=== PATIENT | male | born 1965 | race Caucasian/White ===

== ENCOUNTER 2017-12-22 14:46 | Inpatient (IN) | payer OTHER ==
[~2017-12-22] VITALS: Ht 170.2 cm; Wt 118.0 kg
[2017-12-22 14:50] VITALS: Ht 170.2 cm; Wt 118.0 kg
[2017-12-22] MEDS ORDERED: LOPRESSOR50 M1 PO (15:10)
[2017-12-22] MEDS ORDERED: ATORVASTATIN CA40 M1 PO (15:10)
[2017-12-22] MEDS ORDERED: PLA75 PO (15:10)
[2017-12-22] MEDS ORDERED: XOPENEX HF0.045 MG/1 INH (15:10)
[2017-12-22] MEDS ORDERED: ASPIR 8181 MG PO (15:10)
[2017-12-22] MEDS ORDERED: CLARITIN10 MG PO (15:11)
[2017-12-22] MEDS ORDERED: AMLODIPINE BESY10 M2 PO (15:11)
[2017-12-22] MEDS ORDERED: ISOSORBIDE MONO30 MG PO (15:11)
[2017-12-22] MEDS ORDERED: ZESTRIL20 MG PO (15:11)
[2017-12-22] MEDS ORDERED: DYA PO (15:12)
[2017-12-22] MEDS ORDERED: TAMSULOSIN HYD0.4 M1 PO (15:12)
[2017-12-22 15:43] LABS: BASOPHIL % 0.3 % (0-2); PLATELET COUNT 230 x10^3mcL (130-400); RED CELL DISTRIBUTION WIDTH 13.1 % (11.5-14.5)
[2017-12-22 15:50] LABS: CALCIUM 8.9 mg/dL (8.5-10.1); CHLORIDE SERUM 103 mmol/L (98-107); CREATININE SERUM 0.9 mg/dL (0.7-1.3); GFR1 > 60 mL/min; GLUCOSE SERUM 109 mg/dL (74-106); POTASSIUM SERUM 3.5 mmol/L (3.5-5.1); SODIUM SERUM 140 mmol/L (136-145)
[2017-12-22 15:54] LABS: ALKALINE PHOSPHATASE 84 U/L (46-116); ALT/SGPT 54 U/L (16-63); AST/SGOT 28 U/L (15-37); BILIRUBIN TOTAL 0.3 mg/dL (0.20-1.00); LIPASE 252 IU/L (73-393); TOTAL PROTEIN, SERUM 8.2 g/dL (6.4-8.2)
[2017-12-22 16:04] LABS: microscopic required? NO
[2017-12-22 16:34] LABS: AMPHETAMINE QUAL UR NONE DETECTED (See below)
[2017-12-22 16:42] LABS: urine erythrocyte NEGATIVE (NEGATIVE)
[2017-12-22 17:06] VITALS: BP 158/86
[2017-12-22 17:50] LABS: MAGNESIUM 1.9 mg/dL (1.8-2.4)
[2017-12-22 17:54] LABS: CHOLESTEROL/HDL RATIO 2.2
[2017-12-22 17:58] VITALS: BP 158/86
[2017-12-22 20:57] VITALS: BP 102/52
[2017-12-22 21:30] VITALS: BP 130/100
[2017-12-23 05:36] VITALS: BP 122/72
[2017-12-23 06:17] LABS: CALCIUM 8.5 mg/dL (8.5-10.1); CARBON DIOXIDE 25.4 mmol/L (21-32); CHLORIDE SERUM 106 mmol/L (98-107); GFR1 > 60 mL/min; GLUCOSE SERUM 81 mg/dL (74-106); POTASSIUM SERUM 3.7 mmol/L (3.5-5.1); SODIUM SERUM 138 mmol/L (136-145)
[2017-12-23 06:56] LABS: BASOPHIL % 0.4 % (0-2); PLATELET COUNT 215 x10^3mcL (130-400); RED CELL DISTRIBUTION WIDTH 13.5 % (11.5-14.5)
[2017-12-23 08:52] VITALS: BP 140/80
[2017-12-23 13:45] VITALS: BP 128/71
[2017-12-23 16:54] VITALS: BP 128/71
[2017-12-23 17:05] VITALS: BP 132/73
[2017-12-23 20:00] VITALS: BP 140/62
== END 2017-12-23 22:23 | disposition other institution (70) | DRG 282 ==
LOC: ED 14:46 → DU 16:22
PROVIDERS: Emergency Medicine; Internal Medicine
DX: I21.4 Non-ST elevation (NSTEMI) myocardial infarction (principal); J45.909 Unspecified asthma, uncomplicated; I50.9 Heart failure, unspecified; E78.5 Hyperlipidemia, unspecified; I11.0 Hypertensive heart disease with heart failure; I25.119 Atherosclerotic heart disease of native coronary artery with unspecified angina pectoris; M17.10 Unilateral primary osteoarthritis, unspecified knee; Z88.0 Allergy status to penicillin; Z88.5 Allergy status to narcotic agent; Z88.8 Allergy status to other drugs, medicaments and biological substances; I25.2 Old myocardial infarction; Z95.5 Presence of coronary angioplasty implant and graft
CPT/HCPCS: 83880; A9500; J1644; J2270; J2405; J2785; J8597; Q0092